=== PATIENT | female | born 1965 ===

== ENCOUNTER 2022-06-08 08:32 | Outpatient (REF) | payer SELFPAY ==
--- NOTE | 2022-06-08 09:13 | MHC.AU.HA3 ---
Hearing Instrument Follow-Up- Binaural Date of Visit: 06/08/22 Right Ear: Make, Model, Color, Serial Number: Phuong Marshall P70-R SN: [id number] Color: Silver Merritt Hotel Engineer Repair Warranty: 07/17/2025 Hotel Engineer Loss and Damage Warranty: 07/17/2025 [facility] Service Plan: 05/30/2023 Battery Size: Rechargeable Supply Manager/Slim Tube: #1 Power Earmold/Dome/CShell/SlimTip:Phonak Canal C-Shell SN [id number] 90 day remake; service warranty 08/08/2022 Type of Wax Guard: CeruStop Dispensed By: [facility] Date of Fittin05/30/2022 Left Ear: Make, Model, Color, Serial Number: Phuong Marshall P70-R SN: [id number] Color: Silver Merritt Hotel Engineer Repair Warranty: 08/06/2025 Hotel Engineer Loss and Damage Warranty: 08/06/2025 [facility] Service Plan: 05/30/2023 Battery Size: Rechargeable Supply Manager/Slim Tube: #1 Power Earmold/Dome/CShell/SlimTip: Phonak Canal C-Shell [id number] 9- day remake and 08/08/22 service warranty Type of Wax Guard: CeruStop Dispensed By: [facility] Date of Fittin05/30/2022 Follow-Up Summary: Anali reported that the left hearing aid was not charging. Initially, when the left hearing aid was placed in Anali's field trainer in office, it would not charge in either charging slot; however, the right hearing aid would charge in both the left and right charging slots. Placed the left hearing aid in a stock field trainer and it began charging. Tried to charge again in Anali's field trainer and it started working. Unclear the exact cause of the initial charging issues; however, both hearing aids were charging in Anali's field trainer by the end of the appointment. Recommendations: Anali has a follow up appointment in a couple of weeks and will make note if any issues with charging persist. Diagnosis Code(s):Primary Diagnosis: H90.3 Bilateral Sensorineural Hearing Loss Secondary Diagnosis: H69.93 Unspecified Eustachian Tube Dysfunction, Bilateral Signature: Provider: Alyssa Casillas, [facility]
== END 2022-06-08 08:33 | disposition home or self-care (01) ==
LOC: HO.HAP 08:32
PROVIDERS: Visit Provider Internal Medicine
DX: Z13.89 Encounter for screening for other disorder (principal)

== ENCOUNTER 2022-06-23 14:22 | Outpatient (REF) | payer SELFPAY ==
--- NOTE | 2022-06-24 08:30 | MHC.AU.HA3 ---
Hearing Instrument Follow-Up- Binaural Date of Visit: 06/23/22 Right Ear: Make, Model, Color, Serial Number: Phuong Marshall P70-R SN: [id number] Color: Silver Merritt Picture Hanger Repair Warranty: 07/17/2025 Picture Hanger Loss and Damage Warranty: 07/17/2025 [facility] Service Plan: 05/30/2023 Battery Size: Rechargeable Hospital Chaplain/Slim Tube: #1 Power Earmold/Dome/CShell/SlimTip:Phonak Canal C-Shell SN [id number] 90 day remake; service warranty 08/08/2022 Type of Wax Guard: CeruStop Dispensed By: [facility] Date of Fittin05/30/2022 Left Ear: Make, Model, Color, Serial Number: Phuong Marshall P70-R SN: [id number] Color: Silver Merritt Picture Hanger Repair Warranty: 08/06/2025 Picture Hanger Loss and Damage Warranty: 08/06/2025 [facility] Service Plan: 05/30/2023 Battery Size: Rechargeable Hospital Chaplain/Slim Tube: #1 Power Earmold/Dome/CShell/SlimTip: Phonak Canal C-Shell [id number] 9- day remake and 08/08/22 service warranty Type of Wax Guard: CeruStop Dispensed By: [facility] Date of Fittin05/30/2022 Follow-Up Summary: Patient reports that since the last visit the hearing aids have been charging normally. She has not been able to wear the right side recently, as she developed an ear infection with discharge. She has a mild ear infection in the left side, but there is no discharge. She currently has PE tubes. She has followed up with her ENT and is on medication to treat the infection. She was also advised to not wear the right hearing aid until the discharge stops. She was enjoying and benefiting from the hearing aids, but she is concerned they could have contributed to the recent ear infections. She inquired if there were any other styles that would be better. Discussed that due to the severity of the hearing loss, we are limited in how open the fitting can be without compromising the sound and benefit of the hearing aids. A custom ITC/ITE would not be recommended, as it would block the ear the most. A traditional BTE with molds could likely be cleaned more thoroughly than her current style. She has used those in the past, but would like to try staying with the NARGIS style for the moment. Advised that after use, she wipe the cShells with an alcohol wipe. When she follows up with her ENT in a couple weeks, she could ask if they have any additional suggestions. Also discussed that she could potentially be a candidate for a BAHA. This may require surgery, but it would keep her ear canals open and unoccluded. If she is interested in seeing if she is a candidate she would need to discuss this with her ENT as well. At the fitting, the Scott On iN could not be dispensed, as it was unable to pair to the hearing aids. They sent a replacement device, which was dispensed today (Phonak Scott On iN #[id number], Warranty 08/09/2025). It was successfully paired to the hearing aids. Discussed and demonstrated use of the device. Recommendations: Patient will schedule another check-in after her next ENT follow-up. Diagnosis Code(s): Primary Diagnosis: H90.6 Mixed Hearing Loss, Bilateral Secondary Diagnosis: H69.93 Unspecified Eustachian Tube Dysfunction, Bilateral Signature: Provider: Alyssa Márquez, [facility]
== END 2022-06-23 14:23 | disposition home or self-care (01) ==
LOC: HO.HAP 14:22
PROVIDERS: Visit Provider Internal Medicine
DX: Z13.89 Encounter for screening for other disorder (principal)

== ENCOUNTER 2023-04-19 15:38 | Outpatient (REF) | payer SELFPAY ==
--- NOTE | 2023-04-20 08:21 | MHC.AU.HA3 ---
Hearing Instrument Follow-Up- Binaural Date of Visit: 04/19/23 Right Ear: Make, Model, Color, Serial Number: Phuong Marshall P70-R SN: [id number] Color: Silver Merritt [employer] Former Repair Warranty: 07/17/2025 [employer] Former Loss and Damage Warranty: 07/17/2025 [facility] Service Plan: 05/30/2023 Battery Size: Rechargeable Community Integration Specialist/Slim Tube: #1 Power Earmold/Dome/CShell/SlimTip:C-Shell SN: [id number] Angelica: 08/08/2022 Type of Wax Guard: CeruStop Dispensed By: [facility] Date of Fittin05/30/2022 Left Ear: Make, Model, Color, Serial Number: Phuong Marshall P70-R SN: [id number] Color: Silver Merritt [employer] Former Repair Warranty: 08/06/2025 [employer] Former Loss and Damage Warranty: 08/06/2025 [facility] Service Plan: 05/30/2023 Battery Size: Rechargeable Community Integration Specialist/Slim Tube: #1 Power Earmold/Dome/CShell/SlimTip: C-Shell SN: [id number] Angelica: 08/08/2022 Type of Wax Guard: CeruStop Dispensed By: [facility] Date of Fittin05/30/2022 Follow-Up Summary: Anali brought a hearing test from [facility] performed on 11/17/2022 which showed a significant decrease in hearing in her right ear. Left ear is stable. Anali reported that Dr. Alvarez does not want to reinsert PE tubes as he believes her ears are rejecting them. She has follow up with the ENT in 6 months. Reprogrammed her hearing aids to the updated audio and increased overall gain slightly to 85%. Anali noted improvement in sound quality in office. Reran feedback analyzer. Anali also inquired about different hearing aids. Advised trial period ended 30 days after fitting. She reported that she does not like the size of the hearing aid [id number] as she wears glasses and it can be uncomfortable. Reviewed different styles of hearing aids noting pros and cons of each style based on severity of hearing loss and history of frequent drainage, as discussed at her last appointment. Also discussed end of [facility] Service Agreement on 05/30/2023 and future visits will incur a fee. Recommendations: Hearing instrument follow-up or maintenance as needed. Please contact our clinic with any questions or concerns. Diagnosis Code(s): Primary Diagnosis: H90.6 Mixed Hearing Loss, Bilateral Signature: Provider: Alyssa Casillas, [facility]
== END 2023-04-19 15:39 | disposition home or self-care (01) ==
LOC: HO.HAP 15:38
PROVIDERS: Visit Provider Nurse Practitioner
DX: Z13.89 Encounter for screening for other disorder (principal)

== ENCOUNTER 2023-11-29 09:59 | Outpatient (REF) | payer SELFPAY | END 2023-11-29 10:00 | disposition home or self-care (01) | LOC: HO.HAP 09:59 | DX: Z46.1 Encounter for fitting and adjustment of hearing aid (principal); H90.6 Mixed conductive and sensorineural hearing loss, bilateral | CPT/HCPCS: 92593 ==

== ENCOUNTER 2023-12-01 15:08 | Outpatient (REF) | payer SELFPAY | END 2023-12-01 15:09 | disposition home or self-care (01) | LOC: HO.HAP 15:08 | DX: Z13.89 Encounter for screening for other disorder (principal) ==

== ENCOUNTER 2023-12-12 13:13 | Outpatient (REF) | payer SELFPAY | END 2023-12-12 13:14 | disposition home or self-care (01) | LOC: HO.HAP 13:13 | PROVIDERS: Visit Provider Otolaryngology | DX: Z13.89 Encounter for screening for other disorder (principal) ==